=== PATIENT | male | born 1960 | race Caucasian/White ===

== ENCOUNTER → 2018-04-18 | Outpatient (CLI) | payer OTHER ==
--- NOTE | 2018-04-18 15:21 | REP ---
Chest two views HISTORY: Pre-employment exam Comparison: None The lungs are clear. The heart is normal in size. The pulmonary vasculature is normal in appearance. There is an old compression fracture of a lower thoracic vertebral body. IMPRESSION: No acute disease. Electronically Signed by Itz Murphy MD 04/18/2018 03:13 P
[2018-04-18 17:39] LABS: RUBELLA IgG QUALITATIVE IMMUNE (IMMUNE)
== END ==
LOC: M WUC 14:41
PROVIDERS: ATTEND Physician Assistant
DX: Z02.1 Encounter for pre-employment examination (principal)